=== PATIENT | male | born 2000 | race Two or more races ===

== ENCOUNTER 2025-04-06 04:11 | Emergency (ER) | payer MEDICAID, OTHER ==
[~2025-04-06] VITALS: Ht 182.9 cm; Wt 103.3 kg
[2025-04-06 04:15] VITALS: BP 123/85; PULSE 113; RESP 20; TEMP 98.8; O2SAT 97
[2025-04-06] MEDS ORDERED: AMOX400S56 PO (04:43)
[2025-04-06] MEDS ORDERED: PRED20TA2 PO (04:43)
[2025-04-06] MEDS ORDERED: AMOXICILLIN 200MG/5ml ORAL Susp 50ML PO ONE (04:45)
--- NOTE | 2025-04-06 04:45 | ED.PDOC ---
History of Present Illness HPI Comments 24 y/o obese M presents with c/c of throat pain and earache. Patient reports 3x day history of throat pain, with green discharge. Today, patient states on no developing an earache. No relief or improvement of symptoms with salt-water rinsing. Denies any cough, fever, chills, or further associated symptoms. Chief Complaint: Sore Throat Time Seen by MD: 04:40 Reviewed Notes: Nurses Notes, Medications, Allergies Allergies: Coded Allergies: NO KNOWN ALLERGIES (Unverified , 04/06/25) Home Meds Active Scripts Prednisone (Prednisone) 20 Mg Tab, 20 MG PO BID for 5 Days, #10 TAB Prov:KRYSTAL KOO MD 04/06/25 Amoxicillin & Pot Clavulanate (Amoxicillin/Potassium Cla) 400 Mg/5 Ml Deepti, 400 MG PO BID for 10 Days, #100 ML Prov:KRYSTAL KOO MD 04/06/25 Information Source: Patient Mode of Arrival: Ambulatory Severity: Moderate Timing: Days Duration: Since onset Prehospital treatment: None Past Medical History PAST MEDICAL HISTORY: Denies Surgical History: Denies all surgeries Social History Smoker: Non-Smoker Alcohol: Denies ETOH Use Drugs: Denies Drug Use Lives In: Home All Other Systems: Reviewed and Negative (Comprehensive review of systems are negative unless stated in HPI) Physical Exam General Appearance: No Apparent Distress, Obese HEENT: TMs Normal, Other (tonsils are erythematous and swollen, billaterally, with no exudates) Neck: Full Range of Motion, Non-Tender, Normal, Normal Inspection Respiratory: Chest Non-Tender, Lungs Clear, No Accessory Muscle Use, No Respiratory Distress, Normal Breath Sounds Cardiovascular: No Edema, No JVD, No Murmur, No Gallop, Normal Peripheral Pulses, Regular Rate/Rhythm Breast Exam: Deferred Gastrointestinal: No Organomegaly, Non Tender, No Pulsatile Mass, Normal Bowel Sounds, Soft Genitalia: Deferred Pelvic: Deferred Rectal: Deferred Extremities: No calf tenderness, Normal capillary refill, Normal inspection, Normal range of motion, Non-tender, No pedal edema Musculoskeletal : Apperance: Normal Neurologic: Alert, outpatient facility physical therapist II-XII nml as Tested, No Motor Deficits, Normal Affect, Normal Mood, No Sensory Deficits Cerebellar Function: Normal Reflexes: Normal Skin: Dry, Normal Color, Warm Lymphatic: No Adenopathy Was a procedure done? Was a procedure done?: No Differential Dx Considerations may include: pharyngitis, tonsillitis, viral syndrome, among others X-Ray, Labs, Meds, VS Vital Signs Date Time Temp Pulse Resp B/P (MAP) Pulse Ox O2 Delivery O2 Flow Rate FiO2 04/06/25 04:13 98.8 113 20 123/85 97 98.8 Time of 1ST Reevaluation: 05:10 Reevaluation 1ST: Unchanged Patient Education/Counseling: Diagnosis, Treatment, Prognosis Family Education/Counseling: No Family Present SEPSIS Sepsis Screen Date sepsis recognized/suspect: Apr 06, 2025 Time Sepsis recognized/suspect: 0417 Recent Procedure: No On Antibiotic Therapy: No Respiratory Rate >20: No Heart Rate >90: Yes Temp<36 C (96.8 F) or >38.3 C: No SBP <90 or MAP <65 mmHG: No New Acute Mental Status Change: No Is the patient on CPAP, BIPAP,: No Vital Signs Date Time Temp Pulse Resp B/P (MAP) Pulse Ox O2 Delivery O2 Flow Rate FiO2 04/06/25 04:13 98.8 113 20 123/85 97 98.8 Departure 1 Departure Time of Disposition: 05:00 Impression: Primary Impression: Left otitis media Additional Impression: Sore throat Disposition: 01 HOME / SELF CARE / HOMELESS Condition: Stable e-Prescriptions Prednisone (Prednisone) 20 Mg Tab 20 MG PO BID for 5 Days, #10 TAB Prov: KRYSTAL KOO MD 04/06/25 Amoxicillin & Pot Clavulanate (Amoxicillin/Potassium Cla) 400 Mg/5 Ml Deepti 400 MG PO BID for 10 Days, #100 ML Prov: KRYSTAL KOO MD 04/06/25 Discharged With: Self Critical Care Note Critical Care Time?: No Stability Stability form required: No Heart Score Heart Score: Heart Score Response (Comments) Value History N/A 0 EKG N/A 0 Age N/A 0 Risk Factors N/A 0 Troponin N/A 0 Total 0 I personally scribed for KRYSTAL KOO MD ([email or web address]) on 04/06/25 at 04:45. Electronically submitted by Zenon Julian ([email or web address]). KRYSTAL KOO MD Apr 06, 2025 04:45
[2025-04-06] MEDS: AMOXICILLIN TRIHYDRATE 250 MG CAP PO ONE (05:32)
== END 2025-04-06 08:07 | disposition home or self-care (01) ==
LOC: ER 04:11
DX: H92.02 Otalgia, left ear (principal); H66.92 Otitis media, unspecified, left ear; J02.9 Acute pharyngitis, unspecified
CPT/HCPCS: 99283; J1100